=== PATIENT | male | born 1985 | race African-American/Black ===

== ENCOUNTER 2016-06-09 19:02 | Emergency (ER) | payer OTHER ==
[~2016-06-09] VITALS: Ht 180.3 cm; Wt 79.4 kg
--- NOTE | 2016-06-09 20:36 | ED GI/GU/ABDOMINAL COMPLAINT ---
History of Present Illness General Chief Complaint: General Adult Stated Complaint: SIB WALKING FOR HEMORRHOID? Source: patient Exam Limitations: no limitations Vital Signs & Intake/Output Vital Signs & Intake/Output Vital Signs Date Time Temp Pulse Resp B/P Pulse O2 O2 Flow FiO2 Ox Delivery Rate 06/092 76 132/75 06/09 1909 96.4 81 15 139/77 99 Room Air Room Air Allergies Coded Allergies: No Known Allergies (06/09/16) Reconcile Medications Docusate Sodium (Colace) 100 MG CAPSULE 1-2 CAP PO BID constipation Polyethylene Glycol 3350 (Miralax) 17 GRAM/DOSE POWDER 17 GM PO BID constipation mix with water, juice, soda, coffee or tea Triage Note: PT TO ED FOR HEMORRHOIDS, PT REPORTS CONSTIPATION FOR THE LAST COUPLE OF WEEKS. REPORTS BRB AFTER BM TODAY. PT UNABLE TO SIT R/T DISCOMFORT. PT MEDICATED WITH MOTRIN IN TRIAGE. Triage Nurses Notes Reviewed? yes Onset: Abrupt Duration: hour(s): Timing: single episode today Quality/Severity: cramping Location: rectal pain Radiation: no radiation Activities at Onset: none Modifying Factors: Worsens With: defecating. Associated Symptoms: rectalgia HPI: 20-year-old gentleman presents from urgent care center with a mass extruding from his rectum. He states that he has had constipation for the past 2 weeks. Earlier today he was having a bowel movement. He felt, "something pop when I pushed down." He felt a soft mass from his rectum. He presented to the urgent care center who diagnosed him with rectal prolapse. He has follow-up tomorrow with a rectal surgeon. He presents to the emergency department for further care. He is otherwise well. He has no nausea vomiting fever or abdominal pain. Past History Travel History Traveled to [place] past 21 day No Medical History Any Pertinent Medical History? see below for history Neurological: NONE EENT: NONE Cardiovascular: NONE Respiratory: NONE Gastrointestinal: NONE Hepatic: NONE Renal: NONE Musculoskeletal: NONE Psychiatric: NONE Endocrine: NONE Blood Disorders: NONE Cancer(s): NONE ACCOUNT MANAGER SALES REPRESENTATIVE/Reproductive: NONE Surgical History Surgical History: none Psychosocial History What is your primary language Telugu Tobacco Use: Never used ETOH Use: occasional use Illicit Drug Use: marijuana Family History Hx Contributory? No Review of Systems Review of Systems Constitutional: Reports: no symptoms. EENTM: Reports: no symptoms. Respiratory: Reports: no symptoms. Cardiovascular: Reports: no symptoms. GI: Reports: no symptoms. Genitourinary: Reports: no symptoms. Musculoskeletal: Reports: no symptoms. Skin: Reports: no symptoms. Neurological/Psychological: Reports: no symptoms. Hematologic/Endocrine: Reports: no symptoms. Immunologic/Allergic: Reports: no symptoms. All Other Systems: Reviewed and Negative Physical Exam Physical Exam General Appearance: well developed/nourished, no apparent distress Head: atraumatic, normal appearance Eyes: Bilateral: normal appearance. Ears, Nose, Throat, Mouth: hearing grossly normal Respiratory: normal breath sounds, chest non-tender Cardiovascular: regular rate/rhythm Gastrointestinal: normal bowel sounds, soft, non-tender, no organomegaly Rectal: rectal prolapse approximately 3-4 cm. No lucas bleeding. Brown stool Back: normal inspection Extremities: normal range of motion Neurologic/Psych: no motor/sensory deficits, awake, alert, oriented x 3 Core Measures ACS in differential dx? No Severe Sepsis Present: No Septic Shock Present: No Progress Differential Diagnosis: rectal prolapse versus hemorrhoids versus other Plan of Care: Procedure: Reduction of rectal prolapse With patient consent, gentle pressure applied to the rectal prolapse. The rectal prolapse was easily reduced without problem. Patient reports excellent resolution of discomfort. Initial ED EKG: none Departure Departure Disposition: HOME OR SELF CARE Condition: Stable Clinical Impression Primary Impression: Rectal prolapse Secondary Impressions: Constipation Referrals: PATIENT HAS NO PRIMARY CARE DR (PCP/Family) Departure Forms: Customer Survey General Discharge Information Prescriptions: Current Visit Scripts Docusate Sodium (Colace) 1-2 CAP PO BID #60 CAP Ref 1 Polyethylene Glycol 3350 (Miralax) 17 GM PO BID #255 GM Ref 1 mix with water, juice, soda, coffee or tea Comments 06/09/16, 21:13... discussed with dr. obando, surgeon pv design and installation technician. Pt safe for discharge and will follow up with colo-rectal specialist tomorrow.
[2016-06-09] MEDS ORDERED: COLACE100 M1 PO (20:44)
[2016-06-09] MEDS ORDERED: MIRALAX119 GM PO (20:44)
[2016-06-09 21:32] VITALS: BP 132/75
== END 2016-06-09 21:34 ==
LOC: ERH 19:02
DX: K62.3 Rectal prolapse (principal); K59.00 Constipation, unspecified
CPT/HCPCS: 96372; J1885